=== PATIENT | female | born 1990 | race Caucasian/White ===

== ENCOUNTER 2022-06-27 12:22 | Emergency (ER) | payer MEDICAID, SELFPAY ==
[2022-06-27 12:23] VITALS: BP 128/92; PULSE 103; RESP 12; TEMP 35.7; O2SAT 100; BMI 31.3
--- NOTE | 2022-06-27 13:01 | EX.ED.SAOD ---
HPI History of Present Illness Chief Complaint: Substance Abuse Informant: patient Narrative Narrative: Patient states she was brought here by the [facility] nurse for evaluation. She went there for the first time for plan in unit treatment for alcohol history. She was just discharged from [facility] after 8-day stay for alcohol. She admits to using meth also. She had no delirium symptoms with meth. She is weaned down with phenobarbital. She reports she does not take opioids anymore she used to do fentanyl in the past however she since been on Suboxone treated with [facility] from [place] gets weekly prescriptions. She recently moved down here. She denies taking any opiates except for the Suboxone she states unless it was mixed with her meth that she took yesterday. She denies suicidal homicidal ideations. She denies any nausea or vomiting or any abdominal cramping. She states she just feels fatigued from being in the hospital recently. Otherwise no complaints. [facility] Medical History (Updated 06/27/22 @ 13:[address] Junaid Rushing DO) Substance abuse Allergy/AdvReac Type Severity Reaction Status Date / Time cefaclor [From Ceclor] Allergy Rash Verified 06/27/22 12:23 Social History Smoking Status: Current every day smoker tobacco type: cigarettes ROS ROS ED Constitutional Constitutional ED: Denies chills, fever(s) or sweats Eyes Eyes: Denies change in vision ENT ENT ED: Denies dysphagia or sore throat Cardiovascular Cardiovascular: Denies chest pain, leg edema, palpitations or racing heartbeat Respiratory/Chest Respiratory/Chest: Denies cough, dyspnea or dyspnea on exertion Gastrointestinal Gastrointestinal: Denies abdominal pain, diarrhea, nausea or vomiting Genitourinary Genitourinary ED: Denies dysuria, hematuria or urinary frequency Musculoskeletal Musculoskeletal: Denies back pain, extremity pain or neck pain Integumentary Denies rash or wounds Neurologic Neurologic: Denies headache(s), paresthesias or weakness EXAM Physical Exam Const Vital Signs: 06/27/22 12:23 Temperature 96.2 F L Temperature Source Temporal Pulse Rate 103 H Respiratory Rate 12 Blood Pressure 128/92 H Blood Pressure Mean 104 Pulse Ox 100 Oxygen Delivery Method Room Air Positive well nourished and well developed General Appearance ED: well developed and NAD HEENT Reports moist mucous membranes normocephalic and atraumatic Eyes PERRL, EOMs intact bilaterally and conjunctivae normal General Eye ED: Yes normal appearance of both eyes Neck no lymphadenopathy and supple General: Negative for tenderness Chest Wall Chest: Negative for tenderness Resp normal respiratory effort and normal air movement Effort and Inspection: symmetric chest movement; Negative for respiratory distress Cardio regular rate, regular rhythm and no murmurs Peripheral Pulses: pulses 2+ throughout GI normal to inspection, nondistended, normoactive bowel sounds and non-tender Palpation: Negative for guarding or rebound tenderness present Back/Spine no CVA tenderness and no thoracic nor lumbar tenderness Extremity normal to inspection General Extremety ED: Negative for edema or tenderness General Extremity: Negative for edema Neuro oriented x3 and no sensory deficits noted Sensorium / Orientation: awake and alert Psych mental status grossly normal and thought process normal Psych Narrative: Denies suicidal or homicidal ideations. Skin no rashes or lesions noted and no wounds MDM MDM MDM Narrative Medical decision making narrative: Patient nontoxic had a positive fentanyl screen at [facility] today she is on Suboxone she denies taking any other opiates. She denies suicidal homicidal ideations. Unclear of reason why she was brought here from [facility] as she is not requiring detox from opiates. Discussed with charge nurse in the ED [place] [address] [place] [id number] for discussion to address any additional concerns. 1320: Charge nurse discussed with [address] [place] [id number], they reported their policy is to send here for medical clearance due to not having nursing at facility. At this time patient is medically cleared she is on Suboxone she denies daily use of opiates and without withdrawal symptoms she is recently treated for alcohol withdrawal and discharged 2 days ago with continued treatment at residential facility at [facility]. Therefore I do not feel any work-up is required at this time. Patient discharged back to facility. Discharge Plan Triage Chief Complaint: Substance Abuse ED Provider: Junaid Rushing Dx/Rx/DC Orders Clinical Impression: Polysubstance dependence Instructions: Recovering from Addiction Primary Care Provider: Care Physician,No Primary Referrals: Care Physician,No Primary [Primary Care Provider] - Activity Restrictions/Additional Instructions: You are Medically Cleared to go back to [address] [place] [address]. Nursing discussed with your facility. Disposition Disposition: Home, Self Care
== END 2022-06-27 13:37 | disposition home or self-care (01) ==
PROVIDERS: Emergency Provider Emergency Medicine; Visit Provider Emergency Medicine
DX: F15.90 Other stimulant use, unspecified, uncomplicated (principal); F17.210 Nicotine dependence, cigarettes, uncomplicated
CPT/HCPCS: 99282

== ENCOUNTER → 2022-07-31 | Outpatient (CLI) | payer MEDICAID, SELFPAY ==
[2022-07-31 13:40] LABS: Hematocrit 37.7 % (37-47); Hemoglobin 12.7 g/dL (12.0-15.0); Mean Corp Hgb Conc 33.7 g/dL (32-36); Mean Corpuscular Hgb 26.8 pg (27.0-32.0); Mean Corpuscular Volume 79.7 fL (81-99); Mean Platelet Vol. 9.1 fl (6.2-12.0); Platelet Count 455 K/mm3 (150-450); RBC Distribution Width SD 37.2 fl (35.1-43.9); Red Blood Count 4.73 M/mm3 (4.2-5.4)
[2022-07-31 13:54] LABS: Prothrombin Time (Protime)PT. 12.5 SECONDS (11.7-14.9)
[2022-07-31 13:58] LABS: ALB/GLOB Ratio 1.1 RATIO (0.9-2.4); AST(SGOT) 36 U/L (15-37); Alanine Aminotransfer ALT/SGPT 49 U/L (13-56); Alkaline Phosphatase 119 U/L (45-117); Anion Gap 6 (5-15); BUN 11 mg/dL (7-18); BUN/Creat Ratio 12.9 RATIO (10-20); Calcium,Total 8.9 mg/dL (8.5-10.1); Chloride 105 mmol/L (98-107); Creatinine, Serum 0.86 mg/dL (0.55-1.02); EST Glomerular Filtration Rate 83 mL/min (>60); Est Glom Filt Rate - Afr Amer 100 mL/min (>60); Globulin 3.5 g/dL (2.2-4.2); Glucose 104 mg/dL (74-106); Potassium 4.2 mmol/L (3.5-5.1); Protein, Total 7.5 g/dL (6.4-8.2); Sodium Level 136 mmol/L (136-145)
[2022-07-31 14:40] LABS: HIV - WCH Non-Reactive (Nonreactive); Hepatitis B Surface Antibody Reactive; Hepatitis B Surface Antigen Non-Reactive (Nonreactive)
== END | disposition home or self-care (01) ==
PROVIDERS: Referring Provider Family Medicine; Visit Provider Family Medicine
DX: B18.2 Chronic viral hepatitis C (principal)
CPT/HCPCS: 36415; 80053; 85027; 85610; 86703; 86706; 86708; 86803; 86804; 87340